=== PATIENT | female | born 1990 | race Two or more races ===

== ENCOUNTER 2017-09-16 07:34 | Day surgery (SDC) | payer OTHER ==
[~2017-09-16 07:34] MED LIST: LITHIUM CARBON150 MG
== END 2017-09-16 14:40 | disposition home or self-care (01) ==
LOC: AMB-ENDOS 07:34
DX: K59.09 Other constipation (principal); J45.909 Unspecified asthma, uncomplicated; D64.89 Other specified anemias; F31.89 Other bipolar disorder; I34.1 Nonrheumatic mitral (valve) prolapse; Z12.11 Encounter for screening for malignant neoplasm of colon

== ENCOUNTER → 2017-10-28 | Emergency (ER) | payer OTHER ==
[~2017-10-28] VITALS: Ht 170.2 cm; Wt 49.9 kg
== END | disposition home or self-care (01) ==
LOC: ER 10:35
DX: R10.813 Right lower quadrant abdominal tenderness (principal)

== ENCOUNTER 2018-04-30 08:46 | Emergency (ER) | payer OTHER ==
[~2018-04-30] VITALS: Ht 170.2 cm; Wt 49.9 kg
[2018-04-30] MEDS ORDERED: ZYPREXA5 MG (09:07)
[2018-04-30] MEDS ORDERED: VASOTEC2.5 MG (09:07)
[2018-04-30] MEDS ORDERED: NALTREXONE HCL50 MG (09:07)
== END 2018-04-30 12:26 | disposition home or self-care (01) ==
LOC: ER 08:46
DX: K29.70 Gastritis, unspecified, without bleeding (principal)

== ENCOUNTER 2018-09-04 21:35 | Emergency (ER) | payer OTHER ==
[~2018-09-04] VITALS: Ht 170.2 cm; Wt 49.4 kg
[~2018-09-04 21:35] MED LIST changes: +NALTREXONE HCL50 MG; +VASOTEC2.5 MG; +ZYPREXA5 MG
[2018-09-05] MEDS ORDERED: ANUSOL-HC25 MG RECTAL (04:39)
== END 2018-09-05 05:19 | disposition home or self-care (01) ==
LOC: ER 21:35
DX: K62.5 Hemorrhage of anus and rectum (principal)